=== PATIENT | female | born 1940 | race Caucasian/White ===

== ENCOUNTER 2017-10-25 11:14 | Outpatient (CLI) | payer MEDICARE, OTHER | END 2017-10-25 11:15 | disposition home or self-care (01) | LOC: BICMAMMO 11:14 | PROVIDERS: ATTEND Family Medicine | DX: Z12.31 Encounter for screening mammogram for malignant neoplasm of breast (principal) | CPT/HCPCS: 77063; 77067 ==

== ENCOUNTER 2018-05-23 09:34 | Outpatient (CLI) | payer MEDICARE, OTHER ==
--- NOTE | 2018-05-23 11:16 | CT ---
CT ABDOMEN AND PELVIS WITH AND WITHOUT CONTRAST: HISTORY: Left lower quadrant abdominal mass. COMPARISON: CT examination from 05/28/2011. FINDINGS: ABDOMEN: The lung bases are clear. There is a stable appearance to the small hypodensities involving the liver, most compatible with cys ts. The spleen, pancreas, and gallbladder regions all appear unremarkable. The right and left adrenal glands and the right and left kidneys are normal. There is no significant periaortic or mesenteric adenopathy. PELVIS: The appendix is normal. There is no adenopathy, mass, or free fluid. There is a hernia jason ng the left lateral lower abdominal wall. There is no herniation of bowel, but there is herniation o f fat. This may explain the patient's mass. It is directly anterior to the iliac crest. Review of the osseous structures shows arthritic changes of the spine. IMPRESSION: 1. Minimal sigmoid diverticulosis. 2. Fat-containing hernia involving the left lateral lower abdominal wall, with the hernia through th e anterolateral abdominal muscles in this region. Herniation of fat but no herniation of bowel. Thi s may explain the patient's mass. 3. Small liver cyst incidentally noted. POS: [facility]
== END 2018-05-23 09:35 | disposition home or self-care (01) ==
LOC: SCSCT 09:34
PROVIDERS: ATTEND Family Medicine
DX: R19.04 Left lower quadrant abdominal swelling, mass and lump (principal); K57.30 Diverticulosis of large intestine without perforation or abscess without bleeding; K43.9 Ventral hernia without obstruction or gangrene
CPT/HCPCS: 74178

== ENCOUNTER 2018-06-04 09:56 | Day surgery (SDC) | payer MEDICARE, OTHER ==
[2018-05-27 15:25] VITALS: BMI 30.9
[2018-06-04] MEDS ORDERED: Bupivacaine HCl 0.5%/Epinephrine 1:200,000/PF 30 ml Vial ONE (10:46)
[2018-06-04] MEDS ORDERED: Fentanyl 100 MCG/2 ML VIAL ONE ×3 (11:06→14:15)
[2018-06-04] MEDS ORDERED: SUGAMMADEX SODIUM 200 MG/2 ML VIAL ONE (13:04)
[2018-06-04] MEDS ORDERED: Metoclopramide HCl 10 MG/2 ML VIAL ONE (13:14)
[2018-06-04] MEDS ORDERED: Lidocaine 1% PF 5 ML VIAL ONE (13:14)
[2018-06-04] MEDS ORDERED: diphenhydrAMINE 50 MG/ML VIAL ONE (13:14)
[2018-06-04] MEDS ORDERED: PROPOFOL 200 MG/20 ML VIAL ONE (13:14)
[2018-06-04] MEDS ORDERED: Rocuronium Bromide 10 MG/ML (10ML VIAL) ONE (13:14)
[2018-06-04] MEDS ORDERED: Ondansetron PF 4 MG/2 ML Vial ONE (13:14)
[2018-06-04] MEDS ORDERED: Dexamethasone 20 MG/5 ML VIAL ONE (13:14)
[2018-06-04] MEDS ORDERED: Meperidine HCl/PF 25 MG/ML VIAL ONE ×2 (13:48→13:57)
[2018-06-04] MEDS ORDERED: HYDROcodone/Acetaminophen 5/325 mg Tablet ONE (15:31)
--- NOTE | 2018-06-06 13:30 | OP ---
DATE OF PROCEDURE: 06/04/2018 PROCEDURE: [place] laparoscopic incisional hernia repair with mesh, Ventralex, 8 cm [place]. ANESTHESIA: General. ESTIMATED BLOOD LOSS: Minimal. COMPLICATIONS: None. SPECIMENS: None. FINDINGS: Left lower quadrant hernia in the area of previous surgery. DESCRIPTION OF PROCEDURE: The patient was taken to the operating room and laid supine on the operating room table. After general anesthetic was obtained, the abdomen was shaved, prepped, and draped in a sterile fashion. A Cruz catheter had been placed. Left subcostal 5-mm Optiview trocar was placed in usual fashion, and high-flow pneumoperitoneum was obtained. Left and right abdominal 8 mm robot trocars were placed. The 5 mm port switched out to an 11 camera port. All ports were docked to the robot. Surgeon goes to the console. The adhesions in the left lower quadrant and the omentum that is in the hernia were reduced. The peritoneum was taken down around the hernia exposing the posterior fascia. #1 V lock sutures used to reapproximate the hernia defect in a transverse fashion. This completely closed the defect. A 8 cm Ventralex mesh was brought into the sterile field and placed in through the camera port. The mesh was placed up to cover the closed defect. The mesh exposed side was placed against the fascia. The nonadherent side was left down against the abdominal contents. 2-0 V-Loc was used to sew the mesh to the posterior fascia circumferentially. All needles were removed from the abdomen and accounted for. Local anesthetic was used at all port sites. All ports were removed under camera visualization. Pneumoperitoneum was let down. 4-0 Monocryl and Dermabond used to close all skin incisions. The patient was then returned to Recovery in stable condition. All instrument counts, needle counts, lap counts are correct. Job ID: [id number]
== END 2018-06-04 16:10 | disposition home or self-care (01) ==
LOC: SDC 09:56
PROVIDERS: ATTEND Surgery
PROC: 0WUF4JZ Supplement Abdominal Wall with Synthetic Substitute, Percutaneous Endoscopic Approach (ICD-10-PCS; principal; 2018-06-04)
DX: K43.2 Incisional hernia without obstruction or gangrene (principal); G47.30 Sleep apnea, unspecified; E78.00 Pure hypercholesterolemia, unspecified; M19.90 Unspecified osteoarthritis, unspecified site; E55.9 Vitamin D deficiency, unspecified; Z79.82 Long term (current) use of aspirin; Z79.899 Other long term (current) drug therapy; Z88.1 Allergy status to other antibiotic agents; Z88.5 Allergy status to narcotic agent; Z99.89 Dependence on other enabling machines and devices
CPT/HCPCS: 49654; C1781; J0670; J1100; J1200; J2001; J2175; J2405; J2704; J2765; J3010

== ENCOUNTER 2019-03-13 12:09 | Outpatient (CLI) | payer MEDICARE, OTHER ==
--- NOTE | 2019-03-13 13:35 | MMO ---
Bilateral MAMMO Bilat Screen [facility]. CLINICAL HISTORY: Patient is 78 years old and is seen for screening. The patient has no family history of breast cancer. The patient has no personal history of cancer. VIEWS: The views performed were: bilateral craniocaudal with tomosynthesis and bilateral mediolateral oblique with tomosynthesis. FILMS COMPARED: The present examination has been compared to a prior imaging study performed at [facility] on 10/25/2017. This study has been interpreted with the assistance of computer-aided detection. MAMMOGRAM FINDINGS: There are scattered fibroglandular densities. Finding 1: There is a new irregular mass measuring 12 millimeters seen in the middle region of the left breast at 6 o'clock. Finding 2: There are benign appearing and vascular calcifications seen in both breasts. IMPRESSION: FINDING 1: NEW MASS IN THE LEFT BREAST REQUIRES ADDITIONAL EVALUATION. AN ULTRASOUND EXAM IS RECOMMENDED. FINDING 2: CALCIFICATIONS IN BOTH BREASTS ARE BENIGN. THE RESULTS OF THIS EXAM WERE SENT TO THE PATIENT. ACR BI-RADS Category 0 - Incomplete: Need additional imaging evaluation. [facility] will notify the patient of the need for additional imaging services. MAMMOGRAPHY NOTE: 1. A negative mammogram report should not delay a biopsy if a dominant of clinically suspicious mass is present. 2. Approximately 10% to 15% of breast cancers are not detected by mammography. 3. Adenosis and dense breasts may obscure an underlying neoplasm. Reported by: MORGAN MONTOYA MD Electonically Signed: [id number]
== END 2019-03-13 12:10 | disposition home or self-care (01) ==
LOC: BICMAMMO 12:09
PROVIDERS: ATTEND Family Medicine
DX: Z12.31 Encounter for screening mammogram for malignant neoplasm of breast (principal); N63.23 Unspecified lump in the left breast, lower outer quadrant; R92.1 Mammographic calcification found on diagnostic imaging of breast
CPT/HCPCS: 77063; 77067

== ENCOUNTER 2019-03-24 15:49 | Outpatient (CLI) | payer MEDICARE, OTHER ==
--- NOTE | 2019-03-24 16:16 | ULT ---
LIMITED LEFT BREAST ULTRASOUND: 03/24/19 PROVIDED CLINICAL HISTORY: Abnormal screening mammogram. FINDINGS: Limited sonographic interrogation was performed at the 5:30 position of the left breast in the region of mammographic concern. There is an irregular hypoechoic shadowing mass present in this location, m easuring at least 1.1 cm. IMPRESSION: BIRADS 5: Highly Suggestive of Malignancy - Appropriate Action Should Be Taken Requires biopsy or surgical treatment Ultrasound guided biopsy is recommended. Results and recommendations discussed with the patient and q uestions answered. POS: OFF
== END 2019-03-24 15:50 | disposition home or self-care (01) ==
LOC: BICULT 15:49
PROVIDERS: ATTEND Family Medicine
DX: R92.8 Other abnormal and inconclusive findings on diagnostic imaging of breast (principal)

== ENCOUNTER → 2019-04-03 | Day surgery (SDC) | payer MEDICARE, OTHER ==
--- NOTE | 2019-04-03 13:49 | MMO ---
Left Breast MAMMO Unilat Diag [facility]. CLINICAL HISTORY: Patient is 78 years old and is seen for breast biopsy. The patient has no family history of breast cancer. The patient has no personal history of cancer. The patient has a history of left Ultrasound Guided Core Biopsy in March,. VIEWS: The views performed were: left craniocaudal and left mediolateral oblique. FILMS COMPARED: The present examination has been compared to prior imaging studies performed at [facility] on 10/25/2017, 03/13/2019 and 03/24/2019. This study has been interpreted with the assistance of computer-aided detection. MAMMOGRAM FINDINGS: There are scattered fibroglandular densities. There is a new biopsy clip seen in the left breast. This is slightly cranial to the mass. IMPRESSION: NEW BIOPSY CLIP IN THE LEFT BREAST IS CONFIRMED UTILIZING POST PROCEDURE MAMMOGRAM. THE RESULTS OF THIS EXAM WERE SENT TO THE PATIENT. MAMMOGRAPHY NOTE: 1. A negative mammogram report should not delay a biopsy if a dominant of clinically suspicious mass is present. 2. Approximately 10% to 15% of breast cancers are not detected by mammography. 3. Adenosis and dense breasts may obscure an underlying neoplasm. Reported by: OBEY ANG MD Electonically Signed: [id number]
--- NOTE | 2019-04-03 14:02 | ULT ---
ULTRASOUND GUIDED LEFT BREAST BIOPSY: DATE: 04/03/2019. PROVIDED CLINICAL HISTORY: Left breast mass. FINDINGS: Correlation is made with prior imaging. Informed consent was obtained from the patient. The 5:30 sh adowing left breast mass previously described was localized sonographically. The skin overlying this region was prepped and draped in the usual sterile manner. The soft tissues were infiltrated with 1 % buffered Lidocaine, a small skin incision was made. Continuous ultrasound guidance was utilized to obtain four 14-gauge core samples from the mass. Subsequently, continuous ultrasound guidance was u tilized to deploy a biopsy site marker adjacent to the mass. [place] were withdrawn and hemostasis a chieved. No immediate complications. IMPRESSION: Technically successful ultrasound-guided left breast biopsy. Please correlate with histology results to follow. POS: OFF
== END ==
LOC: BICULT 12:16
PROVIDERS: ATTEND Family Medicine
PROC: 0HBU3ZX Excision of Left Breast, Percutaneous Approach, Diagnostic (ICD-10-PCS; principal; 2019-04-03)
DX: C50.512 Malignant neoplasm of lower-outer quadrant of left female breast (principal); Z88.1 Allergy status to other antibiotic agents; Z88.5 Allergy status to narcotic agent
CPT/HCPCS: 19083; 88305; 88341; 88342

== ENCOUNTER 2019-05-11 07:03 | Outpatient (CLI) | payer MEDICARE, OTHER ==
[2019-05-11 11:23] LABS: #Basophils 0.1 thou/uL (0.0-0.2); #Eosinphils 0.1 thou/uL (0.0-0.7); #Monocytes 0.6 thou/uL (0.11-0.59); #Neutrophils 3.6 thou/uL (1.40-6.50); %Basophils 1.2 % (0.0-1.0); %Eosinophils 1.2 % (0.0-10.0); %Lymphocytes 32.2 % (21.0-51.0); %Monocytes 8.7 % (0.0-10.0); %Neutrophils 56.6 % (42.0-75.0); Hemoglobin 13.3 g/dL (12.0-16.0); Mean Corpuscular Hemoglobin 31.1 pg (27.0-31.0); Mean Corpuscular Volume 91.5 fL (78.0-98.0); Platelet Count 204 thou/uL (130-400); RBC Distribution Width 11.2 % (11.5-14.5); Red Blood Cell (RBC) Count 4.26 mill/uL (4.20-5.40); White Blood Cell (WBC) Count 6.3 thou/uL (4.8-10.8)
--- NOTE | 2019-05-11 11:32 | RAD ---
2 view chest: [05/11/2019] Comparison:10/18/2011 HISTORY: Preoperative patient FINDINGS: No pneumothorax or pleural fluid. No focal consolidation or alveolar edema. Heart and media stinal contours appear grossly unremarkable. Questionable tiny nodular density noted in the left base inferiorly suggesting a granuloma. IMPRESSION: No focal consolidation or alveolar edema-no acute findings.
[2019-05-11 11:41] LABS: Anion Gap 13 mmol/L (10-20); BUN (Urea Nitrogen) 17 mg/dL (9.8-20.1); Calc. Creatinine Clearance 0 mL/min (70-130); Calcium 9.9 mg/dL (7.8-10.44); Carbon Dioxide 26 mmol/L (23-31); Chloride 107 mmol/L (98-107); Estimated GFR-MDRD 65; Glucose 103 mg/dL (83-110); Potassium 4.7 mmol/L (3.5-5.1); Sodium 141 mmol/L (136-145)
--- NOTE | 2019-05-18 18:33 | EKG ---
Test Reason : Blood Pressure : / mmHG Vent. Rate : 064 BPM Atrial Rate : 064 BPM P-R Int : 116 ms QRS Dur : 082 ms QT Int : 388 ms P-R-T Axes : 059 066 -07 degrees QTc Int : 400 ms Normal sinus rhythm with sinus arrhythmia Low voltage QRS Nonspecific T wave abnormality Abnormal ECG When compared with ECG of 18-OCT-2011 11:39, Inverted T waves have replaced nonspecific T wave abnormality in Inferior leads Nonspecific T wave abnormality, worse in Anterolateral leads Confirmed by JENNIFER RUFF, DR. Vazquez ([id number]) on 05/18/2019 6:32:57 PM Referred By: GENO Confirmed By:DR. George RODRIGUEZ MD
== END 2019-05-11 07:04 | disposition home or self-care (01) ==
LOC: LABBT 07:03
PROVIDERS: ATTEND Specialist
DX: Z01.818 Encounter for other preprocedural examination (principal); C50.512 Malignant neoplasm of lower-outer quadrant of left female breast; Z17.0 Estrogen receptor positive status [ER+]
CPT/HCPCS: 71046; 80048; 85025; 93005; 93010

== ENCOUNTER 2019-05-19 08:00 | Day surgery (SDC) | payer MEDICARE, OTHER ==
[2019-05-11 10:31] VITALS: BMI 29.8
--- NOTE | 2019-05-19 10:21 | NM ---
PROCEDURE: Lymphoscintigraphy of the left breast HISTORY: Malignant neoplasm of the lower outer left female breast [employer]: Americo ANESTHESIA: 3 mL of buffered 1% lidocaine AGENT: 440 uCi of technetium 99 M filtered sulfur colloid TECHNIQUE: The breast was prepped with alcohol in the periareolar region. Lidocaine was used to anest hetize 4 spots surrounding the nipple at the 12:00, 3:00, 6:00, and 9:00 positions. The radiopharmaceutical was then injected in these 4 locations surrounding the nipple. Massage was performed of the breast helping the radiopharmaceutical enter the lymphatics. Images obta ined showed uptake of the radiopharmaceutical within 2 left axillary lymph nodes. IMPRESSION: 2 left axillary sentinel lymph nodes
[2019-05-19] MEDS ORDERED: Dexamethasone 20 MG/5 ML VIAL ONE (10:35)
[2019-05-19] MEDS ORDERED: PROPOFOL 200 MG/20 ML VIAL ONE (10:35)
[2019-05-19] MEDS ORDERED: ePHEDrine/0.9% NaCl/PF SYRINGE 50 mg/10 ml ONE (10:35)
[2019-05-19] MEDS ORDERED: Lidocaine 1% PF 5 ML VIAL ONE (10:35)
[2019-05-19] MEDS ORDERED: Ondansetron PF 4 MG/2 ML Vial ONE (10:35)
[2019-05-19] MEDS ORDERED: Acetaminophen 500 MG TAB ONE (11:06)
[2019-05-19] MEDS ORDERED: Ketorolac Tromethamine 30 MG/ML VIAL ONE (11:06)
[2019-05-19] MEDS ORDERED: Fentanyl 100 MCG/2 ML VIAL ONE (13:17)
[2019-05-19] MEDS ORDERED: Isosulfan Blue 50 MG/5 ML VIAL ONE (13:21)
[2019-05-19] MEDS ORDERED: Lidocaine 1% w/Epinephrine 1:100K 20 ML VIAL ONE (13:21)
[2019-05-19] MEDS ORDERED: Bupivacaine 0.25% HCL 30 ML VIAL ONE (13:21)
--- NOTE | 2019-05-19 16:09 | MMO ---
SPECIMEN MAMMOGRAM LEFT BREAST: 05/19/19 HISTORY: Left breast cancer confirmed by prior ultrasound guided left breast biopsy. Needle and wire localization and surgical excision were performed by Dr. Mancuso. FINDINGS/IMPRESSION: Single specimen mammogram is submitted for interpretation. A guide wire is in the specimen. There are multiple calcifications seen in the specimen with what appears to be an area of architectural distor tion. Calcifications were seen in the region of the prior mammographic abnormality, but the biopsy ma rker clip seen on mammogram on 04/03/19 is not seen within the provided specimen. Findings were discu ssed with Dr. Mancuso at the time specimen mammogram was submitted, and findings were relayed to Dr. Mancuso in the Operating Room. POS: [facility]
[2019-05-19] MEDS ORDERED: traMADol HCl 50 MG TAB ONE (18:06)
--- NOTE | 2019-05-20 09:22 | OP ---
DATE OF PROCEDURE: 05/19/2019 PREOPERATIVE DIAGNOSIS: Left breast cancer (about 5 o'clock radian). POSTOPERATIVE DIAGNOSIS: Left breast cancer (about 5 o'clock radian). PROCEDURES PERFORMED: Left breast ultrasound-guided needle localization, left breast lumpectomy, left axillary sentinel lymph node biopsy. ANESTHESIA: General endotracheal. INDICATIONS: The patient is an 78-year-old white female. She presents with a malignancy in the lower left breast. This unfortunately was associated with some overlying skin dimpling and dense closure of the skin. She is taken to the operative room at this time for lumpectomy and sentinel lymph node biopsy. Preoperative lymphoscintigraphy identified left axillary sentinel lymph nodes. DESCRIPTION OF OPERATION: Informed consent was obtained. The patient was taken to the operating room, where general endotracheal anesthesia was obtained with the patient in supine position. Left breast and axilla were prepped with ChloraPrep and draped in sterile fashion. Local anesthetic was infiltrated using a mixture of 1% lidocaine with epinephrine as well as 0.25% Marcaine. A transverse axillary incision was created. Dissection was carried through skin and subcutaneous tissue. Neoprobe was used to identify areas of maximum radio intensity. I identified 3 separate sentinel lymph nodes. These were each dissected circumferentially and removed intact, dividing lymphatics between clamps and 3-0 silk ties. The wound was closed in layers with 3-0 and 4-0 Monocryl suture. Additional local anesthetic was infiltrated during closure. Attention was turned to the left breast. The malignancy was identified with the ultrasound. It was marked on the skin in a grid-type fashion. I planned an incision. It was an elliptical incision to incorporate the skin overlying the malignancy in a vertical fashion. A localizing needle was placed in a superior to inferior fashion. Elliptical incision was created and dissection was carried through skin and subcutaneous tissue. The localizing needle was included within this ellipse. Dissection was carried through skin and subcutaneous tissue and a wide core of tissue around the wire was obtained extending deeply within the breast. The specimen was removed intact. It was checked with ultrasound and the margins appeared to be intact. It was tagged with suture for orientation and passed off the field. Specimen mammography revealed a spiculated lesion. The marking clip was not definitely seen. Because of the large defect in this area, I decided to proceed with an Aquaplast closure. I therefore continued the dissection down to the pectoralis and mobilized the breast tissue off the pectoralis medially and laterally. The deep tissue was then mobilized medially and approximated in 2 layers using running suture of 3-0 Vicryl. The tissue deep to the skin was approximated with the final suture of 3-0 Monocryl and skin edges with a running subcuticular suture of 4-0 Monocryl. Dermabond was placed on each incision. There were no complications. The patient tolerated the procedure well, was taken to the recovery room in stable condition. Job ID: [id number]
--- NOTE | 2019-05-24 23:55 | EKG ---
Test Reason : Blood Pressure : / mmHG Vent. Rate : 095 BPM Atrial Rate : 095 BPM P-R Int : 120 ms QRS Dur : 082 ms QT Int : 354 ms P-R-T Axes : 058 008 212 degrees QTc Int : 444 ms Normal sinus rhythm Nonspecific ST and T wave abnormality Abnormal ECG Confirmed by Mingo SALGUERO ([id number]) on 05/24/2019 11:55:17 PM Referred By: CATARINA Confirmed By:Mingo SALGUERO
== END 2019-05-19 18:20 | disposition home or self-care (01) ==
LOC: SDC 08:00
PROVIDERS: ATTEND Specialist
PROC: 0HBU0ZZ Excision of Left Breast, Open Approach (ICD-10-PCS; principal; 2019-05-19)
PROC: 07B64ZX Excision of Left Axillary Lymphatic, Percutaneous Endoscopic Approach, Diagnostic (ICD-10-PCS; 2019-05-19)
DX: C50.512 Malignant neoplasm of lower-outer quadrant of left female breast (principal); E78.00 Pure hypercholesterolemia, unspecified; G47.30 Sleep apnea, unspecified; M19.90 Unspecified osteoarthritis, unspecified site; Z79.82 Long term (current) use of aspirin; Z79.899 Other long term (current) drug therapy; Z17.0 Estrogen receptor positive status [ER+]; Z88.1 Allergy status to other antibiotic agents; Z88.5 Allergy status to narcotic agent; Z99.89 Dependence on other enabling machines and devices
CPT/HCPCS: 19301; 38525; 76098; 78195; 88307; 88341; 88342; 93005; A9541; Q9968; 93010; J0690; J1100; J1885; J2001; J2405; J2704; J3010; S0020

== ENCOUNTER 2019-10-02 07:53 | Outpatient (CLI) | payer MEDICARE, OTHER ==
--- NOTE | 2019-10-02 09:47 | BD ---
DEXA BONE DENSITY STUDY: HISTORY: Postmenopausal. FINDINGS: Lumbar Spine: BMD (g/cm2) L1 1.016 T-Score: +0.2 L2 1.217 T-Score: +1.7 L3 1.356 T-Score: +2.5 L4 1.199 T-Score: +1.3 L1-L4 1.199 T-Score: +1.4 Femoral Neck: 0.868 T-Score: +0.2 Total Femur: 1.082 T-Score: +1.1 Impression: Normal bone mineral density of the lumbar spine and left femoral neck. POS: [facility]
== END 2019-10-02 07:54 | disposition home or self-care (01) ==
LOC: BICMAMMO 07:53
PROVIDERS: ATTEND Internal Medicine Hematology & Oncology
DX: Z13.820 Encounter for screening for osteoporosis (principal); Z78.0 Asymptomatic menopausal state
CPT/HCPCS: 77080

== ENCOUNTER 2020-04-28 10:16 | Outpatient (CLI) | payer MEDICARE, OTHER ==
--- NOTE | 2020-04-28 10:52 | MMO ---
Bilateral MAMMO Bilat Diag [facility]. CLINICAL HISTORY: Patient is 79 years old and is seen for diagnostic exam. The patient has no family history of breast cancer. 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 The patient has a history of left Ultrasound Guided Core Biopsy in March,. VIEWS: The views performed were: bilateral craniocaudal with tomosynthesis; bilateral mediolateral oblique with tomosynthesis; and bilateral mediolateral with tomosynthesis. FILMS COMPARED: The present examination has been compared to prior imaging studies performed at [facility] on 10/25/2017, 03/13/2019, 03/24/2019 and 04/03/2019. This study has been interpreted with the assistance of computer-aided detection. MAMMOGRAM FINDINGS: The breasts are heterogeneously dense, which could obscure a lesion on mammography. Benign calcifications are noted bilaterally. There are left sided post-operative and XRT changes. There are no suspicious masses, suspicious calcifications, or new areas of architectural distortion. IMPRESSION: THERE IS NO MAMMOGRAPHIC EVIDENCE OF MALIGNANCY. A ROUTINE FOLLOW-UP MAMMOGRAM IN 1 YEAR IS RECOMMENDED. THE RESULTS OF THIS EXAM WERE SENT TO THE PATIENT. ACR BI-RADS Category 2 - Benign finding MAMMOGRAPHY NOTE: 1. A negative mammogram report should not delay a biopsy if a dominant of clinically suspicious mass is present. 2. Approximately 10% to 15% of breast cancers are not detected by mammography. 3. Adenosis and dense breasts may obscure an underlying neoplasm. Reported by: BARBRA PATTERSON MD Electonically Signed: [id number]
== END 2020-04-28 10:17 | disposition home or self-care (01) ==
LOC: BICMAMMO 10:16
PROVIDERS: ATTEND Specialist
DX: Z08 Encounter for follow-up examination after completed treatment for malignant neoplasm (principal); Z85.3 Personal history of malignant neoplasm of breast
CPT/HCPCS: 77066; G0279

== ENCOUNTER 2020-09-23 09:50 | Outpatient (CLI) | payer MEDICARE | END 2020-09-23 09:51 | disposition home or self-care (01) | LOC: BICMAMMO 09:50 | PROVIDERS: ATTEND Internal Medicine Hematology & Oncology | DX: Z13.820 Encounter for screening for osteoporosis (principal); N95.8 Other specified menopausal and perimenopausal disorders; T38.6X5A Adverse effect of antigonadotrophins, antiestrogens, antiandrogens, not elsewhere classified, initial encounter | CPT/HCPCS: 77080 ==

== ENCOUNTER 2021-05-02 10:12 | Outpatient (CLI) | payer MEDICARE | END 2021-05-02 10:13 | disposition home or self-care (01) | LOC: BICMAMMO 10:12 | PROVIDERS: ATTEND Specialist | DX: Z08 Encounter for follow-up examination after completed treatment for malignant neoplasm (principal); Z85.3 Personal history of malignant neoplasm of breast | CPT/HCPCS: 77066; G0279 ==

== ENCOUNTER 2021-09-25 10:02 | Outpatient (CLI) | payer MEDICARE | END 2021-09-25 10:03 | disposition home or self-care (01) | LOC: BICMAMMO 10:02 | PROVIDERS: ATTEND Nurse Practitioner Family | DX: Z13.820 Encounter for screening for osteoporosis (principal); C50.512 Malignant neoplasm of lower-outer quadrant of left female breast; T38.6X5A Adverse effect of antigonadotrophins, antiestrogens, antiandrogens, not elsewhere classified, initial encounter | CPT/HCPCS: 77080 ==

== ENCOUNTER 2022-01-18 09:02 | Outpatient (CLI) | payer OTHER | END 2022-01-18 09:03 | disposition home or self-care (01) | LOC: BICCT 09:02 | PROVIDERS: ATTEND Family Medicine | DX: R10.32 Left lower quadrant pain (principal); K57.30 Diverticulosis of large intestine without perforation or abscess without bleeding; K59.00 Constipation, unspecified; K76.9 Liver disease, unspecified; M43.17 Spondylolisthesis, lumbosacral region; Z90.49 Acquired absence of other specified parts of digestive tract; Z90.710 Acquired absence of both cervix and uterus | CPT/HCPCS: 74177 ==

== ENCOUNTER 2022-08-20 09:36 | Outpatient (CLI) | payer OTHER | END 2022-08-20 09:37 | disposition home or self-care (01) | LOC: SCSMRI 09:36 | PROVIDERS: ATTEND Neurological Surgery | DX: M54.2 Cervicalgia (principal); M47.813 Spondylosis without myelopathy or radiculopathy, cervicothoracic region | CPT/HCPCS: 72141 ==

== ENCOUNTER 2022-10-03 09:13 | Outpatient (CLI) | payer OTHER | END 2022-10-03 09:14 | disposition home or self-care (01) | LOC: BICMAMMO 09:13 | PROVIDERS: ATTEND Nurse Practitioner Family | DX: Z13.820 Encounter for screening for osteoporosis (principal); C50.512 Malignant neoplasm of lower-outer quadrant of left female breast | CPT/HCPCS: 77080 ==

== ENCOUNTER 2023-05-10 09:46 | Outpatient (CLI) | payer OTHER | END 2023-05-10 09:47 | disposition home or self-care (01) | LOC: BICMAMMO 09:46 | PROVIDERS: ATTEND Specialist | DX: Z12.31 Encounter for screening mammogram for malignant neoplasm of breast (principal); Z85.3 Personal history of malignant neoplasm of breast; Z85.828 Personal history of other malignant neoplasm of skin; Z98.890 Other specified postprocedural states | CPT/HCPCS: 77063; 77067 ==

== ENCOUNTER 2024-06-04 10:39 | Outpatient (CLI) | payer OTHER | END 2024-06-04 10:40 | disposition home or self-care (01) | LOC: BICMAMMO 10:39 | PROVIDERS: ATTEND Family Medicine | DX: Z12.31 Encounter for screening mammogram for malignant neoplasm of breast (principal); Z86.000 Personal history of in-situ neoplasm of breast; Z98.890 Other specified postprocedural states | CPT/HCPCS: 77063; 77067 ==